=== PATIENT | male | born 1955 | race Caucasian/White ===

== ENCOUNTER → 2020-04-08 11:09 | Outpatient (BNVA) | payer OTHER, SELFPAY | PROVIDERS: PCP Internal Medicine; Referring Provider Internal Medicine; Visit Provider Hospitalist | DX: Z76.89 Persons encountering health services in other specified circumstances (principal) ==

== ENCOUNTER 2020-08-16 11:59 | Day surgery (SDC) | payer OTHER, SELFPAY ==
[2020-08-12 10:57] VITALS: BMI 38.3
[2020-08-16 12:37] VITALS: BP 110/71; PULSE 69; RESP 18; TEMP 36.3; O2SAT 98
[2020-08-16 12:38] LABS: Glucose, Whole Blood 94 mg/dL (60-115)
--- NOTE | 2020-08-16 12:55 | HO.ANESPROP2 ---
[facility] Active Problems Active Problems: All Active Problems (Updated 08/12/20 @ 11:00 by Jackie Razo) MORIAH on CPAP (Acute) Asthma (Acute) Past Medical History Medical History Asthma COVID-19 vaccine administered Depression Diabetes Elevated cholesterol MORIAH on CPAP Thyroid disease Family History Family History Father Leukemia Surgical History Surgical History History of excision of pilonidal cyst Hx of arthroscopic knee surgery Hx of foot surgery Social History Social History Are you a primary health care law specialist to a significant other at home: No Do you presently have visiting nurse or other home services: No Smoking Status: Former smoker Smoked in Last 30 Days: No Smoking Quit Date: 05/2020 Use of substances other than those prescribed or required for medical reasons: No Have you been hit, kicked, punched, or otherwise hurt by someone within the past year? If so, by whom?: No Advance Directives Information Provided: No Recently lost weight without trying: No Meds Allergies Allergy/AdvReac Type Severity Reaction Status Date / Time sulfamethoxazole Allergy Intermediate HIVES Verified 04/08/20 19:57 [From BACTRIM] trimethoprim [From BACTRIM] Allergy Mild HIVES Verified 04/08/20 19:57 Active Medications: Current Medications Generic Name Dose Route Start Last Admin Trade Name Freq PRN Reason Stop Dose Admin Sodium Biphosphate/Sodium Phosphate 133 ml 08/16/20 11:29 Sodium Phosphate,Davis-Dibasic 133 Ml Enema ND ONCE PRN Poor Colonoscopy Prep Results Home Medications Medication Instructions Recorded Confirmed Last Taken Type atorvastatin 20 mg tablet 20 mg PO BEDTIME 03/10/20 08/12/20 Unknown History flu vacc 2019-(64yr IM 03/10/20 04/08/20 Unknown History up)-MF59C(PF) 60 mcg(15 mcgx4)/0.5 mL IM syringe levothyroxine 175 mcg tablet 175 mcg PO DAILY 03/10/20 08/12/20 Unknown History metformin 1,000 mg tablet 1,000 mg PO BEDTIME 03/10/20 08/12/20 Unknown History montelukast 10 mg tablet 10 mg PO BEDTIME 03/10/20 08/12/20 Unknown History sertraline 100 mg tablet 100 mg PO BEDTIME 03/10/20 08/12/20 Unknown History albuterol sulfate 90 mcg/actuation 2 puff PO Q4H PRN 04/08/20 08/12/20 Unknown History aerosol inhaler canagliflozin 100 mg tablet 100 mg PO DAILY 04/08/20 08/12/20 Unknown History dulaglutide 1.5 mg/0.5 mL 3 mg SUBCUT QWEEK 04/08/20 08/12/20 Unknown History subcutaneous pen injector Exam Exam Date and Time: August 16, 2020 1255 Height,Weight and Vital Signs: Height 5 ft 11 in Weight 124.738 kg Last Vital Signs Temp 97.3 F 08/16/20 12:37 Pulse 69 08/16/20 12:37 Resp 18 08/16/20 12:37 BP 110/71 08/16/20 12:37 Pulse Ox 98 08/16/20 12:37 Pertinent Lab Results Pertinent Lab Results: Laboratory Tests 08/16/20 12:33 POC Glucose 94 Airway Mallampati Class: III TM Dist: >3cm Neck ROM: Full
[2020-08-16] MEDS: Lactated Ringers 1,000 ML 100 ML IVCONT (13:01)
[2020-08-16 14:50] VITALS: BP 106/61; PULSE 61; RESP 16; TEMP 36.6; O2SAT 97
--- NOTE | 2020-08-16 14:53 | PM.OP ---
Brief Operative Note Date of Service: 08/16/20 Pre-op diagnosis: + Cologuard test, Hx of polyps, Screening Post-op diagnosis: other (Colon polyp, Diverticulosis, Internal hemorrhoids) Procedure: Colonoscopy to cecum and TI with snare polypectomy and placement of 2 Resolution clips Surgeon: George Amanda Anesthesia: MAC Estimated blood loss (mL): 5.0 Pathology: other (A. Proximal ascending colon polyp) Condition: stable Disposition: PACU
[2020-08-16 15:05] VITALS: BP 94/50; PULSE 58; RESP 16; O2SAT 100
[2020-08-16 15:20] VITALS: BP 109/55; PULSE 53; RESP 18; O2SAT 100
--- NOTE | 2020-08-16 15:32 | OP_ITS ---
SURGEON: George Amanda MD PREOPERATIVE DIAGNOSIS: POSTOPERATIVE DIAGNOSIS: PROCEDURE PERFORMED: ESTIMATED BLOOD LOSS: COMPLICATIONS: ANESTHESIA: Monitored anesthesia care. ASSISTANTS: SPECIMENS: PREOPERATIVE DIAGNOSES: Colorectal cancer screening, personal history of tubular adenoma of the colon, positive Cologuard test. POSTOPERATIVE DIAGNOSES: Colorectal cancer screening, personal history of tubular adenoma of the colon, positive Cologuard test, colon polyp, diverticulosis, and internal hemorrhoids. PROCEDURES PERFORMED: Colonoscopy to the cecum and terminal ileum with snare polypectomy, and placement of 2 Resolution clips. Full consent obtained from him for this, including risks of bleeding and perforation. DESCRIPTION OF PROCEDURE: The patient was placed in the left lateral decubitus position. The digital rectal exam revealed no abnormalities. The Olympus video pediatric colonoscope was entered into the rectum and advanced easily to the cecum. Once in the cecum, I did identify normal-appearing cecal pouch with appendiceal orifice and a normal-appearing ileocecal valve. The terminal ileum was cannulated and appeared normal. The scope withdrawn back in the colon. The entire cecum and ileocecal valve appeared normal. The scope was then slowly withdrawn assessing all mucosal surfaces carefully. Preparation throughout the colon was very good, but there was also a fair amount of liquid stool, which had to be irrigated and suctioned away. Ultimately, the prep became very good. In the proximal ascending colon on a fold was an approximately 8 mm slightly raised polyp, which was snared and recovered by suction. The polypectomy site appeared without any sign of residual polyp. There was some persistent oozing. Two Resolution clips were applied with good hemostasis. The area was irrigated and observed for 5 minutes and there was no further bleeding. I did not visualize any other polyps, colitis, nor angiodysplasia. There was a mild amount of sigmoid diverticulosis. In the rectum, scope was retroflexed visualizing internal hemorrhoids, but no other pathology. The rectal mucosa appeared normal. The scope was straightened and withdrawn. He tolerated the procedure well and was returned to the recovery area in stable condition. IMPRESSION: 1. Colon polyp, status post snare polypectomy, and placement of 2 Resolution clips. 2. Diverticulosis. 3. Internal hemorrhoids. PLAN: The results of the pathology will be checked. I would recommend a repeat colonoscopy in 5 years for further screening. He was advised not to use any aspirin and NSAIDs for 1 week. This has been discussed with his . MD GLENN Wilkerson/TAINA / [phone]
== END 2020-08-16 15:46 | disposition home or self-care (01) ==
PROVIDERS: PCP Internal Medicine; Visit Provider Internal Medicine
PROC: 0DJD8ZZ Inspection of Lower Intestinal Tract, Via Natural or Artificial Opening Endoscopic (ICD-10-PCS; CPT 45378; principal; 2020-08-16 13:20)
DX: Z12.11 Encounter for screening for malignant neoplasm of colon (principal); Z86.010 Personal history of colon polyps; D12.2 Benign neoplasm of ascending colon; K57.30 Diverticulosis of large intestine without perforation or abscess without bleeding; K64.8 Other hemorrhoids; G47.33 Obstructive sleep apnea (adult) (pediatric); J45.909 Unspecified asthma, uncomplicated; E11.9 Type 2 diabetes mellitus without complications; Z79.84 Long term (current) use of oral hypoglycemic drugs; Z79.899 Other long term (current) drug therapy; Z87.891 Personal history of nicotine dependence
CPT/HCPCS: 45385; 82947; 88305

== ENCOUNTER → 2020-11-30 08:35 | Outpatient (BNVA) | payer OTHER, SELFPAY | PROVIDERS: PCP Internal Medicine; Visit Provider Hospitalist | DX: G47.33 Obstructive sleep apnea (adult) (pediatric) (principal); J45.21 Mild intermittent asthma with (acute) exacerbation; J40 Bronchitis, not specified as acute or chronic; Z99.89 Dependence on other enabling machines and devices ==

== ENCOUNTER → 2022-08-25 08:50 | Outpatient (BNVA) | payer OTHER, SELFPAY | PROVIDERS: PCP Internal Medicine; Visit Provider Hospitalist | DX: Z01.811 Encounter for preprocedural respiratory examination (principal); J45.21 Mild intermittent asthma with (acute) exacerbation; G47.33 Obstructive sleep apnea (adult) (pediatric); Z99.89 Dependence on other enabling machines and devices | CPT/HCPCS: 94010 ==

== ENCOUNTER 2023-08-27 10:02 | Outpatient (AMB) | payer OTHER, SELFPAY ==
--- NOTE | 2023-08-27 10:38 | MHC.OFFVIS ---
Intake Vital Signs 08/27/23 10:40 Height 5 ft 11 in Weight 265 lb BMI 37.0 Pulse 73 Pulse Source Pulse Oximeter Pulse Oximetry (%) 95 Oxygen Delivery Method Room Air Intake Visit Reasons: sleep apnea Practice Support Specialist Required: No Allergies sulfamethoxazole [From BACTRIM] Allergy (Intermediate, Verified 08/27/23 10:41) HIVES trimethoprim [From BACTRIM] Allergy (Mild, Verified 08/27/23 10:41) HIVES HPI HPI Comments History of Present Illness Details The patient is a 67-year-old gentleman known history of asthma moderately persistent in addition to obstructive sleep apnea. His asthma appears to be controlled at this time and he has not been using his inhalers as prescribed. Unfortunately, he also started smoking because of significant stressors in his life. He knows that he needs to quit. For the meantime will talked about the importance of using his inhalers as prescribed to avoid any worsening respiratory symptoms. Denies any recent exacerbations or need for prednisone. He has not been using his rescue inhaler more than twice a week. In regards to his CPAP the CPAP therapy continues to be effective and beneficial 08/25/2022 the patient is here for a pulmonary follow-up visit. The patient is scheduled to undergo a total knee replacement. He was asked for a preoperative evaluation. Clinically the patient is doing well from a respiratory status. He does have a history of asthma but has not had to use his rescue inhaler. He has not required any prednisone or any antibiotics for any recent illness. She in addition to this the patient has a history obstructive sleep apnea and has been on CPAP. The CPAP therapy has been very affecting beneficial and he does use it at present time. I did download the data because he does have some daytime drowsiness. His Winton score is a little elevated 24. His AHI is down to 1.5. It appears that his maximum pressure in the machine is set up at 16 cm. Sometimes he needs more than that. Therefore I will increase the maximum pressure to 18 cm. He is also having vivid dreams. I did request that he can take the singular in the morning. As far as from a pulmonary standpoint the patient is medically optimized to have surgery. He did undergo spirometry in the office demonstrating no evidence of any obstructive ventilatory defects. The patient has minimal risk for perioperative pulmonary complications at this time. 08/27/2023 the patient is here for a pulmonary follow-up visit. The patient overall has been struggling with his knee. He did have his knee surgery and he had issues with pain afterwards while receiving physical therapy. Now about a year after the fact he is still struggling with his knee actually worse than it was prior to surgery. He is following closely with his orthopedic surgeon but since non which was happening he is getting a 2nd opinion [place]. The patient now needs waiting for that appointment in the next few weeks. In the meantime he continues uses CPAP. The CPAP therapy continues to be affecting beneficial he does use it every night for more than 4 hours a night. He does not need to get a new head gear. I will send a script in order for him to get supplies from his [employer] company, [employer]. From the asthma standpoint he is stable although he has not been very active. But asthma seems to be okay without any recent exacerbations. Unfortunately he has been smoking cigars. I advised him not to. This is typically when he goes golfing with his buddies and they start smoking themselves and he feels that needs to take part. So I did encourage him not to given to the pressures. [facility] Medical History Asthma COVID-19 vaccine administered Depression Diabetes Elevated cholesterol MORIAH on CPAP Thyroid disease Surgical History History of excision of pilonidal cyst Hx of arthroscopic knee surgery Hx of foot surgery Family History Father Leukemia Social History (Updated 11/30/20 @ 08:47 by MAAME Flores) Are you a primary health care manager to a significant other at home: No Do you presently have visiting nurse or other home services: No Patient Tobacco Use Status: Current everyday Tobacco user Tobacco use type: Cigarette Cigarette Packs Per Day: 1 Cigarettes Per Day: 4 Years Smoked: 50 years Review of Systems Const Denies night sweats and Reports weight loss ENT Denies change in voice, Denies lip swelling, Denies mouth pain, Denies nasal congestion and Denies nasal discharge Card Denies chest pain and Denies dyspnea on exertion Resp Reports cough and Denies dyspnea on exertion GI Denies abdominal pain Musc Reports abnormal gait, Reports arthralgias and Reports joint swelling Neuro Denies Neuro-related abnormal movements and Reports abnormal gait Psych Denies no additional complaints Carlos/Lymph Denies easy bleeding and Denies lymphadenopathy Aller/Immun Denies lip swelling Physical Exam Vital Signs: Last Vital Signs Pulse 73 08/27/23 10:40 Pulse Ox 95 08/27/23 10:40 Oxygen Delivery Method Room Air 08/27/23 10:40 BMI result Body Mass Index 37.0 Const General: alert Neck Neck: Yes normal visual inspection, Yes full ROM and Yes no lymphadenopathy Chest Chest palpation & inspection: normal inspection of the chest Resp Auscultation: clear to auscultation bilaterally, no rales, no rhonchi and no wheezes Cardio Rate: regular rate Rhythm: regular rhythm Heart sounds: S1 normal heart sound present and S2 normal heart sound present GI Palpation (GI): Soft to palpation and nontender Auscultation: normal bowel sounds Skin General skin exam: rashes and/or lesions noted Assessment & Plan Assessment & Plan (1) MORIAH on CPAP: Code(s): G47.33 - Obstructive sleep apnea (adult) (pediatric); Z99.89 - Dependence on other enabling machines and devices (2) Asthma: Code(s): J45.909 - Unspecified asthma, uncomplicated Qualifiers: Asthma complication type: with acute exacerbation Asthma persistence: intermittent Asthma severity: mild Qualified Code(s): J45.21 - Mild intermittent asthma with (acute) exacerbation Plan LEWIS as needed Continue Singulair, change to at night Continue APAP therapy ([employer] [facility]). Adjusted pressures 11-16 the ->11-18. Needs supplies (F20) F/U 1 year Coding Level of Care Code Est Pt Level 4 (17174) Diagnoses MORIAH on CPAP G47.33; Z99.89 Mild intermittent asthma with acute exacerbation J45.21 Asthma complication type: with acute exacerbation Asthma persistence: intermittent Asthma severity: mild Time Spent (min) 17
[2023-08-27 10:40] VITALS: PULSE 73; O2SAT 95; BMI 37.0
== END 2023-08-27 11:51 | disposition home or self-care (01) ==
PROVIDERS: PCP Internal Medicine; Visit Provider Hospitalist
DX: G47.33 Obstructive sleep apnea (adult) (pediatric) (principal); Z99.89 Dependence on other enabling machines and devices; J45.21 Mild intermittent asthma with (acute) exacerbation
CPT/HCPCS: 99214

== ENCOUNTER → 2023-08-27 10:02 | Outpatient (BNVA) | payer OTHER, SELFPAY | PROVIDERS: Visit Provider Hospitalist ==

== ENCOUNTER 2024-08-26 08:15 | Outpatient (AMB) | payer OTHER, SELFPAY ==
--- OUTSIDE RECORDS SUMMARY | 2024-08-26 08:26 | XMS_ITS | Clinical Summary ---
Author Organization [facility] Address [address] [place] [address] Care Team Providers Care Shredding Machine Operator Name Role Phone Jaime Koehler MD Primary Care Provider Surgical History Surgery Date Site/Laterality Comments FOOT SURGERY PROCEDURE: HISTORICAL FOOT SURGERY KNEE SURGERY PROCEDURE: HISTORICAL KNEE SURGERY Medical History Medical History Date Comments Asthma 02/05/2017 DX:Asthma Depression 08/02/2017 DX:Depression Hyperlipidemia 08/02/2017 DX:Hyperlipidemi a Hypothyroid 08/02/2017 DX:Hypothyroid Obstructive sleep apnea syndrome 02/05/2017 DX:Obstructive sleep apnea syndrome Type 2 diabetes mellitus wit hout complication (CMS/HCC) 08/02/2017 DX:Type 2 diabetes mellitus without complication (HCC) Social History Tobacco Use Types Packs/Day Years Used Date Smoking Tobacco: Every Day Smokeless Tobacco: Never Sex and Gender Information Value Date Recorded Sex Assigned at Not on file Legal Sex Male 4:47 PM EST Gender Identity Not on file Sexual Orientation Not on file Obstetrics History Plan of Treatment Health Maintenance Due Date Last Done Comments DTaP,Tdap,and Td Vaccines (1 - Tdap) 1973 Pneumococcal Vaccine: 50+ Ye ars (1 of 1 - PCV) 2004 Zoster Vaccines (1 of 2) 2004 COVID-19 Vaccine ( - 2023-2 5 season) 2024 Influenza Vaccine (#1) 2024 RSV Immunization Patients 60 + Years Old (1 - 1-dose 75+ series) 2029 HIB Vaccines Aged Out No longer eligi ble based on patient's age to complete this topic HPV Vaccines Aged Out No longer eligi ble based on patient's age to complete this topic Hepatitis A Vaccines Aged Out No long er eligible based on patient's age to complete this topic Hepatitis B Vaccines Aged Out No long er eligible based on patient's age to complete this topic IPV Vaccines Aged Out No longer eligi ble based on patient's age to complete this topic MMR Vaccines Aged Out No longer eligi ble based on patient's age to complete this topic Meningococcal ACWY Vaccine Aged Out N o longer eligible based on patient's age to complete this topic Meningococcal B Vacine Aged Out No lo nger eligible based on patient's age to complete this topic RSV Immunization Patients Un sugar 20 months Aged Out No longer eligible b ased on patient's age to complete this topic Varicella Vaccines Aged Out No longer eligible based on patient's age to complete this topic Care Teams Shredding Machine Operator Relationship Specialty Start Date End Date Jaime Koehler MD [address] [place] [address] PCP - General Internal Medicine 06/26/17
--- OUTSIDE RECORDS SUMMARY | 2024-08-26 08:26 | XMS_ITS | Patient Health Record ---
Author Organization [facility] Address [address] [place] [id number] Care Team Providers Care Sweatband Drummer Name Role Phone Jaime Koehler Primary Care Provider Unavail able George Amanda Unavailable [phone] Allergies Allergen (clinical drug ingredient) Drug/Non Drug Allergy documented on EMR Reaction Allergy Type Onset Date Status Bactrim Unknown Drug Allergy Active Reason For Referral No Information Medications Medication SIG (Take, Route, Frequency, Duration) Notes Start Date End Date Status Levothyroxine Sodium 175 MCG 1 tablet Orally Once a day Active Atorvastatin Calcium 20 MG 1 tablet Oral ly Once a day Active metFORMIN HCl 1000 MG 1 tablet with meal s Orally Once a day Active ProAir HFA 108 (90 Base) MCG/ACT 2 puffs as needed Inhalation every 4 hrs Active Invokana 100 MG TAKE 1 TABLET BY ROLF TH EVERY DAY Oral for 90 Active Albuterol Sulfate (2.5 MG/3ML) 0.083% 3 ml Inhalation Three times a day Active Vitamin D 400 UNIT Orally A ctive Zoloft 100 MG 1 tablet Orally Once a day Active Trulicity 1.5 MG/0.5ML INJECT 0.5 ML (1. 5 MG TOTAL) UNDER THE SKIN EVERY 7 DAYS. Subcutaneous for 84 Active Montelukast Sodium 10 MG TAKE 1 TABLET B Y MOUTH EVERY DAY IN THE EVENING Oral for 90 Active Immunizations Vaccine Route Administration Date Status Comme nts Influenza Unknown 02/10/2020 Administered Problems Problem Type SNOMED Code ICD Code Onset Dates Problem Status W/U Status Risk Notes Problem 711236651 Encounter for screening for malignant neoplasm of colon (Z12.11) Active confirmed Problem 558372312 History of adenomatous polyp of colon (Z86.010) Active confirmed Problem Type II diabetes mellitus without complication (129506001) Type 2 diabetes mellitus without complications (E11.9) Active confirmed Problem Screening for malignant neoplasm of rectum (598229624) Encounter for screening for malignant neoplasm of rectum (Z12.12) Active confirmed Problem 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.4) Active confirmed Problem 06665571 Preprocedural examination (Z01.818) Active confirmed Problem Abnormal feces (408933674) Positive colorectal cancer screening using Cologuard test (R19.5) Active confirmed Plan Of Treatment Future Test Test Name Order Date COLONOSCOPY 04/28/2015 COLONOSCOPY 08/05/2020 Insurance Providers Payer Name Payer Address Payer Phone Subscriber Number Group Number Insured Name Patient Relationship to Insured Coverage Start Date Coverage End Date [facility] Navigator Plan(REFERR AL IS NEEDED) [address] [place] [address] [id number] YOLIS NOYOLA Self - patient is the insured Medical (General) History Medical History History ICD Code Colonoscopy 06-21-2009--2 tubular adenoma s removed Hyperlipidemia Depression Mild asthma Sleep apnea-wears CPAP Diabetes mellitus Denies AR,CVA,renal disease Hypothyroidism Colonoscopy in 07/2015 with removal of 3 tubular adenomas Surgical History Surgery Date(Month/Year) Surgery for a pilonidal cyst Foot surgery Left knee arthroscopy
--- OUTSIDE RECORDS SUMMARY | 2024-08-26 08:26 | XMS_ITS ---
Author Organization [facility] Address [address] [place] [address] Care Team Providers Care Outside Laborer Name Role Phone Jaime Koehler Primary Care Provider Unavail able George Amanda Unavailable [phone] REASON FOR VISIT colonoscopy Encounters Encounter Location Date Provider Diagnosis [facility] [address] [place] [address] 03/09/2023 George Amanda Plan Of Treatment No Information Progress Notes * NATE LOPEZODOB:1955 (67 yo M)Acc No.[id number]:03/09/2023 Patient:?YOLIS LOPEZ :1955???Age:67 Y???Sex:Male Address:[address] [place] [address] * true * Date:? Generated for Scotti michael/[place]/eTransmitting on:?08/26/2024 08:25 AM EDT
--- OUTSIDE RECORDS SUMMARY | 2024-08-26 08:26 | XMS_ITS | Continuity of Care Document ---
Author Organization [facility] Address [address] [place] [id number] Care Team Providers Care Printing Services Coordinator Name Role Phone Zakia TOLBERT, Jaime Hunt Primary Care Physician Encounter [facility] Date(s): 07/16/24 - 08/15/24 [facility]/[address] [address]- Encounter Type: Triage Allergies, Adverse Reactions, Alerts Substance Criticality Severity Reaction Reaction Severity Status sulfamethoxazole-trimethoprim Urticaria Unknown Active Bactrim rash Active Immunizations Given and Recorded Vaccine Date Status Refusal Reason RSV vaccine, preF A-preF B, recombinant 07/29/24 G iven pneumococcal 20-valent conjugate vaccine 07/29/24 Given influenza virus vaccine, inactivated 04/03/24 Hector rded influenza virus vaccine, inactivated 03/06/23 Give n influenza virus vaccine, inactivated 03/14/22 Hector rded influenza virus vaccine, inactivated 03/14/21 Hector rded influenza virus vaccine, inactivated 04/11/18 Give n influenza virus vaccine, inactivated 03/05/17 Give n SARS-CoV-2(COVID-19)mRNA-LNP vac([id number]) 04/03/24 Recorded [id number] 12y+ bivalent booster vax 03/06/23 Given [id number] 12y+ bivalent booster vax 03/14/22 Recorded SARS-CoV-2 mRNA (iuoloaf-necw-yntft) vax 09/28/21 Recorded SARS-CoV-2 (COVID-19) mRNA BNT-162b2 vac 03/14/21 Recorded SARS-CoV-2 (COVID-19) mRNA BNT-162b2 vac 08/07/20 Recorded SARS-CoV-2 (COVID-19) mRNA BNT-162b2 vac 07/16/20 Recorded zoster vaccine, inactivated 06/16/20 Given zoster vaccine, inactivated 04/09/20 Given Influenza Virus Vaccine (oldterm) 1 03/02/20 Recor ded Influenza Virus Vaccine (oldterm) 02/10/20 Recorde d pneumococcal 23-valent vaccine 04/11/18 Given pneumococcal 13-valent vaccine 03/27/17 Given 1Result Comment[facility] Abrysvo preservative-free intramuscular injection 0.5 mL, Intramuscular, Once, # 0.5 mL, 0 Refills, Soft Stop, 07/29/24 4:08:00 PM EST, [facility], Partial fill upon patient request if the prescription is for a schedule II opioid drug., 0.5 mL Intramuscular Once, 180, cm, 07/29/24 15:42:00 EST, Height, 114.9, kg, 12/10/23 12:55:00 EDT, Dry Weight Start Date: 07/29/24 Status: Ordered Quantity: 0.5 Unit: mL Repeat number: 1 albuterol 90 mcg/inh inhalation powder 2 puffs, Inhalation, Every 4 hours, PRN as needed, # 1 each, 6 Refills, Maintenance, 11/25/19 12:44:00 PM EDT, Powder, [facility]/pharmacy #[id number], 2 puffs Inhalation Every 4 hours,PRN:as needed, 180, cm, 07/15/19 10:21:00 EST, Height, 127.27, kg, 07/01/19 11:14:00 EST, Dry Weight Start Date: 11/25/19 Status: Ordered Quantity: 1.0 Unit: each Repeat number: 7 atorvastatin 20 mg oral tablet 1 tablet, By Mouth, Daily, # 90 tablet, 1 Refills, Maintenance, 12/28/21 9:43:00 AM EDT, [facility]/pharmacy #[id number], 180, cm, 03/17/21 14:20:00 EDT, Height Start Date: 12/28/21 Status: Ordered Quantity: 90.0 Unit: tablet Repeat number: 2 Jardiance 10 mg oral tablet 1 tablet = 10 mg, By Mouth, Daily in AM, # 30 tablet, 0 Refills, Maintenance, 08/24/22 7:51:00 AM EDT, Tablet, Partial fill upon patient request if the prescription is for a schedule II opioid drug. Start Date: 08/24/22 Status: Ordered Quantity: 30.0 Unit: tablet Repeat number: 1 levothyroxine 175 mcg (0.175 mg) oral tablet 1 tablet, By Mouth, Daily, # 90 tablet, 6 Refills, [id number], 180, cm, 03/17/21 14:20:00 EDT,Height, 127.27, kg, 07/01/19 11:14:00 EST, Dry Weight Start Date: 05/16/21 Status: Ordered Quantity: 90.0 Unit: tablet Repeat number: 1 metFORMIN 1000 mg oral tablet 1 tablet = 1,000 mg, By Mouth, Daily, # 90 tablet, 11 Refills, Maintenance, 02/02/17 9:26:59 AM EDT,[facility]/pharmacy #[id number] Start Date: 02/02/17 Status: Ordered Quantity: 90.0 Unit: tablet Repeat number: 12 montelukast 10 mg oral tablet 10 mg, 1, tablet, By Mouth, Daily in PM, # 30 tablet, Refills 0, Maintenance, 08/24/22 7:50:00 AM EDT, Partial fill upon patient request if the prescription is for a schedule II opioid drug. Start Date: 08/24/22 Status: Ordered Quantity: 30.0 Unit: tablet Repeat number: 1 sertraline 100 mg oral tablet 1 tablet, By Mouth, Daily, # 90 tablet, 0 Refills, Maintenance, 04/16/24 9:08:00 AM EST, [id number], 180, cm, 12/10/23 12:55:00 EDT, Height, 114.9, kg, 12/10/23 12:55:00 EDT, Dry Weight Start Date: 04/16/24 Status: Ordered Quantity: 90.0 Unit: tablet Repeat number: 1 tamsulosin 0.4 mg oral capsule 0.4 mg, 1, capsule, By Mouth, Daily, # 30 capsule, Refills 0, Tot. Refills 0, Maintenance, 06/19/24 4:23:00 PM EST, Route to Pharmacy Electronically, [facility]/pharmacy #[id number], Partial fill upon patient request if the prescription is for a schedule II opioid drug., 180, cm, 06/19/24 16:00:00 EST, Height, 114.9, kg, 12/10/23 12:55:00 EDT, Dry Weight Start Date: 06/19/24 Status: Ordered Quantity: 30.0 Unit: capsule Repeat number: 1 Trulicity Pen 0.75 mg/0.5 mL subcutaneous solution 2 mL, 0 Refill(s), INJECT 0.5 ML (0.75 MG TOTAL) UNDER THE SKIN EVERY 7 DAYS, 0 Refills, 07/29/24 1:56:00 PM EST, Partial fill upon patient request if the prescription is for a schedule II opioid drug. Start Date: 07/29/24 Status: Ordered Repeat number: 1 Trulicity Pen 1.5 mg/0.5 mL subcutaneous solution 0.5 mL = 1.5 mg, Subcutaneous Injection, Every week, rotate injection sites, # 2 mL, 0 Refills, Maintenance, 08/24/22 7:50:00 AM EDT, Solution, Partial fill upon patient request if the prescription isfor a schedule II opioid drug. Start Date: 08/24/22 Status: Ordered Quantity: 2.0 Unit: mL Repeat number: 1 Trulicity Pen 3 mg/0.5 mL subcutaneous solution 0.5 mL = 3 mg, Subcutaneous Injection, Every week, rotate injection sites, # 2 mL, 6 Refills, Maintenance, 06/19/24 4:30:00 PM EST, Solution, [facility], Partial fill upon patient request if the prescription is for a schedule II opioid drug., 180, cm, 06/19/24 16:00:00 EST, Height, 114.9, kg, 12/10/23 12:55:00 EDT, Dry Weight Start Date: 06/19/24 Status: Ordered Quantity: 2.0 Unit: mL Repeat number: 7 Problem List Condition Confirmation Course Effective Dates Status H ealth Status Informant COPD (chronic obstructive pulmonary disease) Confirmed Active COVID-19 Confirmed Active Hyperlipidemia LDL goal < 100 Confirmed Active 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, managed as type 2 Confirmed Active Hypogonadism in male Confirmed Active MORIAH (obstructive sleep apnea) Confirmed Active Primary osteoarthritis of left knee Confirmed Active Severe obesity (BMI 35.0-39.9) with comorbidity Confirmed Active Diabetes mellitus type 2, controlled, without complications Confirmed Active Social History Social History Type Response Smoking Status 5-9 cigarettes (betw een 1/4 to 1/2 pack)/day in last 30 days entered on: 03/01/21 Sex Sex Representation Male (finding) Patient Care team information Care Team Personnel Name: Jaime Koehler MD, I Position: [facility] Physician - Primary Care Member Role: PCP Address: [address] [place] [address] Telecom: Name: Evelio SALAZAR, Dar Galvan Position: [facility] RN Member Role: Primary Care Nurse Care Team Related Persons Name: LUIS CABRERA Name: LUIS LOPEZ Name: BRIDGET DAMON Insurance Providers Guarantor name: YOLIS LOPEZ Health Plan Information #: 1 Payer: [facility] POS Member Number: NA Policy Number: NA Group Number: NA
--- OUTSIDE RECORDS SUMMARY | 2024-08-26 08:26 | XMS_ITS | Continuity of Care Document ---
Author Organization [facility] Address [address] [place] [id number]- Care Team Providers Care Driver'S Education Instructor Name Role Phone Zakia TOLBERT, Jaime Hunt Primary Care Physician Encounter [facility] Date(s): 07/11/24 - 08/10/24 [facility]/[address] [address]- Encounter Type: Triage Allergies, Adverse Reactions, Alerts [...] virus vaccine, inactivated 03/05/17 Give n SARS-CoV-2(COVID-19)mRNA-LNP vac([id number]) 04/03/24 Recorded [id number] 12y+ bivalent booster vax 03/06/23 Given [id number] 12y+ bivalent booster vax 03/14/22 Recorded SARS-CoV-2 mRNA (pwmuvox-galo-ryukj) vax 09/28/21 Recorded SARS-CoV-2 (COVID-19) mRNA BNT-162b2 [...] Refills, Soft Stop, 07/29/24 4:08:00 PM EST, [facility], Partial fill upon patient request if [...] Refills, Maintenance, 11/25/19 12:44:00 PM EDT, Powder, [facility]/pharmacy #[id number], 2 puffs Inhalation Every 4 hours,PRN:as needed, 180, cm, 07/15/19 10:21:00 EST, Height, 127.27, kg, 07/01/19 11:14:00 EST, Dry Weight Start Date: 11/25/19 Status: Ordered Quantity: 1.0 Unit: each Repeat number: 7 atorvastatin 20 mg oral tablet 1 tablet, By Mouth, Daily, # 90 tablet, 1 Refills, Maintenance, 12/28/21 9:43:00 AM EDT, [facility]/pharmacy #[id number], 180, cm, 03/17/21 14:20:00 EDT, Height [...] Mouth, Daily, # 90 tablet, 6 Refills, [id number], 180, cm, 03/17/21 14:20:00 EDT,Height, 127.27, kg, 07/01/19 11:14:00 EST, Dry Weight Start Date: 05/16/21 Status: Ordered Quantity: 90.0 Unit: tablet Repeat number: 1 metFORMIN 1000 mg oral tablet 1 tablet = 1,000 mg, By Mouth, Daily, # 90 tablet, 11 Refills, Maintenance, 02/02/17 9:26:59 AM EDT,[facility]/pharmacy #[id number] Start Date: 02/02/17 Status: Ordered Quantity: [...] 0 Refills, Maintenance, 04/16/24 9:08:00 AM EST, [id number], 180, cm, 12/10/23 12:55:00 EDT, Height, 114.9, kg, 12/10/23 12:55:00 EDT, Dry Weight Start Date: 04/16/24 Status: Ordered Quantity: 90.0 Unit: tablet Repeat number: 1 tamsulosin 0.4 mg oral capsule 0.4 mg, 1, capsule, By Mouth, Daily, # 30 capsule, Refills 0, Tot. Refills 0, Maintenance, 06/19/24 4:23:00 PM EST, Route to Pharmacy Electronically, [facility]/pharmacy #[id number], Partial fill upon patient request if [...] Refills, Maintenance, 06/19/24 4:30:00 PM EST, Solution, [facility], Partial fill upon patient request if [...] Personnel Name: Jaime Koehler MD, I Position: [facility] Physician - Primary Care Member Role: PCP Address: [address] [place] [address] Telecom: Name: Evelio SALAZAR, Dar Galvan Position: [facility] RN Member Role: Primary Care Nurse Care Team Related Persons Name: LUIS CABRERA Name: LUIS LOPEZ Name: BRIDGET DAMON Insurance Providers Guarantor name: YOLIS LOPEZ Health Plan Information #: 1 Payer: [facility] POS Member Number: NA Policy Number: NA Group Number: NA
--- NOTE | 2024-08-26 08:29 | A.OFFVIS_ITS ---
Vital Signs 08/26/24 08:30 Height 5 ft 11 in Weight 275 lb 9.245 oz BMI 38.4 BP 132/76 Blood Pressure Location Lt brachial Position Sitting Pulse 68 Pulse Source Pulse Oximeter Pulse Oximetry (%) 97 Oxygen Delivery Method Room Air Intake Visit Reasons: Sleep apnea Allergies sulfamethoxazole [From BACTRIM] Allergy (Intermediate, Verified 08/26/24 08:33) HIVES trimethoprim [From BACTRIM] Allergy (Mild, Verified 08/26/24 08:33) HIVES HPI Comments Details: The patient is a 68-year-old gentleman known history of asthma moderately persistent in addition to obstructive sleep apnea. His asthma appears to be controlled at this time and he has not been using his inhalers as prescribed. Unfortunately, he also started smoking because of significant stressors in his life. He knows that he needs to quit. For the meantime will talked about the importance of using his inhalers as prescribed to avoid any worsening respirator y symptoms. Denies any recent exacerbations or need for prednisone. He has not been using his rescue inhaler more than twice a week. In regards to his CPAP the CPAP therapy continues to be effective and beneficial 08/25/2022 the patient is here for a pulmonary follow-up visit. The patient is scheduled to undergo a total knee replacement. He was asked for a preoperative evaluation. Clinically the patient is doing well from a respiratory status. He does have a history of asthma but has not had to use his rescue inhaler. He has not required any prednisone or any antibiotics for any recent illness. She in addition to this the patient has a history obstructive sleep apnea and has been on CPAP. The CPAP therapy has been very affecting beneficial and he does use it at present time. I did download the data because he does have some daytime drowsiness. His [place] score is a little elevated 8/24. His AHI is down to 1.5. It appears that his maximum pressure in the machine is set up at 16 cm. Sometimes he needs more than that. Therefore I will increase the maximum pressure to 18 cm. He is also having vivid dreams. I did request that he can take the singular in the morning. As far as from a pulmonary standpoint the patient is medically optimized to have surgery. He did undergo spirometry in the office demonstrating no evidence of any obstructive ventilatory defects. The patient has minimal risk for perioperative pulmonary complications at this time. 08/27/2023 the patient is here for a pulmonary follow-up visit. The patient overall has been struggling with his knee. He did have his knee surgery and he had issues with pain afterwards while receiving physical therapy. Now about a year after the fact he is still struggling with his knee actually worse than it was prior to surgery. He is following closely with his orthopedic surgeon but since non which was happening he is getting a 2nd opinion [place]. The patient now needs waiting for that appointment in the next few weeks. In the meantime he continues uses CPAP. The CPAP therapy continues to be affecting beneficial he does use it every night for more than 4 hours a night. He does not need to get a new head gear. I will send a script in order for him to get supplies from his [employer] company, [email or web address]. From the asthma standpoint he is stable although he has not been very active. But asthma seems to be okay without any recent exacerbations. Unfortunately he has been smoking cigars. I advised him not to. This is typically when he goes golfing with his buddies and they start smoking themselves and he feels that needs to take part. So I did encourage him not to given to the pressures. 08/26/2024 the patient is here for pulmonary follow-up visit. Overall the patient has been doing well. He still recovering from his knee surgery. He is going to have a brace now. In the meantime he has been using the CPAP every night. He uses it 100% of the time. He uses it more than 4 hours a night. His average pressure is around 12 cm. The patient feels like the pressures are too low. Seems like he would benefit from a higher pressure little bit so I will adjust the machine to go from 12-18 from 11-16. Hopefully he will feel that this pressures are better. Sometimes the mask leaks a little bit more specially because of his beer. Will switch him over to a cushion air touch foam mask F20 large this hopefully would fit a little bit better. As far as the asthma is stable. He needs a new rescue inhaler. He does use Singulair with good effect. PFSH Medical History Asthma COVID-19 vaccine administered Depression Diabetes Elevated cholesterol MORIAH on CPAP Thyroid disease Surgical History History of excision of pilonidal cyst Hx of arthroscopic knee surgery Hx of foot surgery Family History Father Leukemia Social History (Updated 08/26/24 @ 08:33 by Izabella Ngo [facility]) Are you a primary child care sitter to a significant other at home: No Do you presently have visiting nurse or other home services: No Patient Tobacco Use Status: Current everyday Tobacco user Tobacco use type: Cigarette Cigarette Packs Per Day: 0.5 Cigarettes Per Day: 10 Years Smoked: 50 years Review of Systems Const Denies night sweats and Reports weight loss ENT Denies change in voice, Denies lip swelling, Denies mouth pain, Denies nasal congestion and Denies nasal discharge Card Denies chest pain and Denies dyspnea on exertion Resp Reports cough and Denies dyspnea on exertion GI Denies abdominal pain Musc Reports abnormal gait, Reports arthralgias and Reports joint swelling Neuro Denies Neuro-related abnormal movements and Reports abnormal gait Psych Denies no additional complaints Carlos/Lymph Denies easy bleeding and Denies lymphadenopathy Aller/Immun Denies lip swelling Physical Exam Vital Signs: Last Vital Signs Pulse 68 08/26/24 08:30 BP 132/76 08/26/24 08:30 Pulse Ox 97 08/26/24 08:30 Oxygen Delivery Method Room Air 08/26/24 08:30 BMI result Body Mass Index 38.4 Const General: alert Neck Neck: Yes normal visual inspection, Yes full ROM and Yes no lymphadenopathy Chest Chest palpation & inspection: normal inspection of the chest Resp Auscultation: clear to auscultation bilaterally, no rales, no rhonchi and no wheezes Cardio Rate: regular rate Rhythm: regular rhythm Heart sounds: S1 normal heart sound present and S2 normal heart sound present GI Palpation (GI): Soft to palpation and nontender Auscultation: normal bowel sounds Skin General skin exam: rashes and/or lesions noted Assessment & Plan Assessment & Plan (1) MORIAH on CPAP: Code(s): G47.33 - Obstructive sleep apnea (adult) (pediatric); Z99.89 - Dependence on other enabling machines and devices Category: Medical (2) Asthma: Code(s): J45.909 - Unspecified asthma, uncomplicated Category: Medical Qualifiers: Asthma complication type: with acute exacerbation Asthma persistence: intermittent Asthma severity: mild Qualified Code(s): J45.21 - Mild intermittent asthma with (acute) exacerbation Plan LEWIS as needed Continue Singulair, change to at night Continue APAP therapy ([employer] [facility]). Adjusted pressures 16 the ->18. Needs supplies (F20 Airtouch foam mask-Large) F/U 1 year Medications: Changed From albuterol sulfate 90 mcg/actuation 2 puffs PO Q4H 30 days PRN 8.5 grams 11RF Shortness Of Breath To albuterol sulfate 90 mcg/actuation 2 puffs inhalation Q4H PRN 8.5 grams 11RF Shortness Of Breath 30 days Refilled montelukast 10 mg PO QPM 90 tabs 3RF Coding Level of Care Code Est Pt Level 4 (38949) Diagnoses MORIAH on CPAP G47.33; Z99.89 Mild intermittent asthma with acute exacerbation J45.21 Asthma complication type: with acute exacerbation Asthma persistence: intermittent Asthma severity: mild Time Spent (min) 17
[2024-08-26 08:30] VITALS: BP 132/76; PULSE 68; O2SAT 97; BMI 38.4
== END 2024-08-26 08:56 | disposition home or self-care (01) ==
PROVIDERS: PCP Internal Medicine; Visit Provider Hospitalist
DX: G47.33 Obstructive sleep apnea (adult) (pediatric) (principal); Z99.89 Dependence on other enabling machines and devices; J45.21 Mild intermittent asthma with (acute) exacerbation
CPT/HCPCS: 99214

== ENCOUNTER → 2024-08-26 08:15 | Outpatient (BNVA) | payer OTHER, SELFPAY | PROVIDERS: PCP Internal Medicine; Visit Provider Hospitalist ==